=== PATIENT | female | born 1955 | race Caucasian/White ===

== ENCOUNTER 2017-03-01 08:15 | Inpatient (IN) | payer BC, OTHER ==
[2017-02-27 15:48] VITALS: BMI 34.5
--- NOTE | 2017-03-01 07:46 | HP ---
History & Physical Update - History History: No Change - Physical Physical: No Change - Assessment Assessment: No Change - Plan Plan: No Change
[~2017-03-01 08:15] MED LIST: GABAPENTIN 300 MG CAPSULE (FP) PO ONE
[2017-03-01] MEDS ORDERED: oxyCODONE HCL 10 MG SUSTAINED ACTING TABLET PO STA (10:02)
[2017-03-01] MEDS ORDERED: CEFAZOLIN 2 GM/D5W 50 ML IVPB ONE (10:02)
[2017-03-01] MEDS ORDERED: THROMBIN (BOVINE) 5,000 UNIT VIAL TP ONE (11:30)
[2017-03-01] MEDS ORDERED: BUPIVACAINE HCL/PF 2.5 MG/ML - 30 ML VIAL IJ ONE ×2 (11:30→11:36)
[2017-03-01] MEDS ORDERED: LIDOCAINE 1%/EPI 1:100000 (20 ML MULTI DOSE VIAL) ONE (11:30)
[2017-03-01] MEDS ORDERED: MIDAZOLAM HCL 2 MG/2 ML SINGLE DOSE VIAL ONE ×2 (11:41→13:43)
[2017-03-01] MEDS ORDERED: BUPIVACAINE HCL/PF 0.5% (5MG/ML) 10 ML VIAL ONE (11:59)
[2017-03-01] MEDS ORDERED: BUPIVACAINE HCL 0.25% 125 MG/50 ML VIAL ONE (12:10)
[2017-03-01] MEDS ORDERED: LIDOCAINE 1%/EPI 1:100000 (20 ML MULTI DOSE VIAL) IJ ONE (12:30)
[2017-03-01] MEDS ORDERED: ceFAZolin SODIUM 1 GM VIAL ONE (12:48)
[2017-03-01] MEDS ORDERED: ONDANSETRON 4 MG/2 ML VIAL ONE (12:57)
[2017-03-01] MEDS ORDERED: DEXAMETHASONE SOD PHOSPHATE 4 MG/1 ML VIAL ONE (12:57)
[2017-03-01] MEDS ORDERED: BUPIVACAINE HCL 0.25% 125 MG/50 ML VIAL INF ONE ×2 (13:05)
[2017-03-01] MEDS ORDERED: hydrALAZINE HCL 20 MG/ML VIAL ONE (13:45)
[2017-03-01] MEDS ORDERED: PROMETHAZINE HCL 25 MG/1 ML VIAL IVPUSH PRN (14:43)
[2017-03-01] MEDS ORDERED: ONDANSETRON 4 MG/2 ML VIAL IVPUSH PRN (14:43)
[2017-03-01] MEDS ORDERED: LACTATED RINGERS SOLUTION 1,000 ML IV SCH ×2 (14:45→15:30)
[2017-03-01] MEDS ORDERED: KETOROLAC TROMETHAMINE 30 MG/1 ML VIAL IVPUSH PRN (15:27)
[2017-03-01] MEDS ORDERED: CYCLOBENZAPRINE HCL 10 MG TABLET (FP) PO PRN (15:27)
[2017-03-01] MEDS ORDERED: ACETAMINOPHEN 1000 MG/100 ML VIAL (NON FORMULARY) IVPB PRN (15:27)
[2017-03-01] MEDS ORDERED: ONDANSETRON 4 MG/2 ML VIAL IVPB PRN (15:27)
[2017-03-01] MEDS ORDERED: oxyCODONE HCL 5 MG TABLET PO PRN (15:27)
[2017-03-01] MEDS ORDERED: ACETAMINOPHEN INJECTION 100 ML IVPB ONE (15:28)
[2017-03-01] MEDS ORDERED: diazePAM CARPU-JECT 10 MG/2 ML DISP.SYRIN ONE (15:29)
[2017-03-01] MEDS ORDERED: traMADol HCL 50 MG TABLET ONE (15:29)
[2017-03-01] MEDS: traMADol HCL 50 MG TABLET PO SCH ×3 (15:50→21:34)
--- NOTE | 2017-03-01 15:57 | OP ---
Operative Note - Note: Operative Date: 03/01/17 Pre-Operative Diagnosis: L4/5 spondylolithesis Operation: L4/5 TLIF Post-Operative Diagnosis: Same as Pre-op Surgeon: Kannan Soliman [employer] Operator: Ovidio Ward (Lex[employer] 2nd) Anesthesiologist/SOCIAL WORK INSTRUCTOR: Spencer Goodson Anesthesia: Spinal Estimated Blood Loss (mls): 30 Fluid Volume Replaced (mls): 1,200 Operative Report Dictated: Yes
--- NOTE | 2017-03-01 15:59 | SURG ---
Surgery Analysis Consultant Note Analysis Consultant: Ovidio Ward PA-C Date of Service: 03/01/17 Diagnosis: L4/5 spondylolithesis, radiculopathy Procedure: L4/5 transforaminal lumbar interbody fusion/instrumentation/decompression; allograft implant, neuromonitoring I was present for the entirety of the operative procedure. For further detail, please refer to operative report. Visit type - Case Type Case Type: Scheduled Admission - New patient This patient is new to me today: Yes Date on this admission: 03/01/17
[2017-03-01] MEDS ORDERED: diazePAM CARPU-JECT 10 MG/2 ML DISP.SYRIN IVPUSH ONE (16:30)
--- NOTE | 2017-03-01 16:44 | OP ---
DATE OF OPERATION: 03/01/2017 PREOPERATIVE DIAGNOSES: 1. Spinal stenosis, L4-5. 2. Spondylolisthesis, L4-5. POSTOPERATIVE DIAGNOSES: 1. Spinal stenosis, L4-5. 2. Spondylolisthesis, L4-5. PROCEDURE PERFORMED: 1. Transforaminal lumbar interbody fusion, L4-5. 2. Placement of instrumentation, L4-5. 3. Hemilaminectomy. SURGEON: Kannan Soliman MD GIANT TIRE REPAIRER: KATHRYN Chirinos ESTIMATED BLOOD LOSS: 50 mL. IV FLUIDS: Per Anesthesia. COMPLICATIONS: There were none. ANESTHESIA: Spinal. DISPOSITION: Patient brought to the PACU in stable condition. INDICATIONS FOR SURGERY: The patient is a 61-year-old female who has been suffering from pain from significant from her back down her legs. X-rays and MRI were completed, which noted that she had spinal stenosis at L4-5 secondary to spondylolisthesis. She had gone through an exhaustive course of treatment for this, which included medications, physical therapy as well as injections. Unfortunately, her pain continued to persist despite all this. At this point, risks, benefits , and alternatives were discussed and the patient consented to surgery. OPERATIVE NOTE: The patient was brought to the operating room by anesthesia staff. After appropriate patient identification was performed, spinal anesthesia was given. The patient was able to position herself prone onto the OR table, with all areas of bony prominences well padded at this time. The C-arm was brought in. The L4 and L5 levels were marked off. Then 10 mL of lidocaine with epinephrine was injected into her back at this time. Her back was prepped and draped in a sterile manner. At this point timeout was completed. Incisions were made bilaterally over the L4 and L5 pedicles. Dissection was carried down to the fascia. The fascia was then split open at this time. The C-arm was brought in. Under C-arm guidance, trocars were advanced into both the L4 and L5 pedicles. Through the trocars, wires inserted. Over the wires, tap was performed and screws inserted. On the right-hand side, retractor blades were set up to expose the L4-5 facet joint. This was confirmed with x-ray. The facet joint was removed with a bur. The disk was entered using a series of pituitaries, Kerrisons, and curettes. A diskectomy was completed. The endplates were decorticated at this time. Bone graft was laid down. A cage filled with bone graft was placed in. Tulip heads were placed over the screws. A ramírez was measured and placed in. Compression and final tightening was performed. On the left-hand side, a ramírez was measured and placed in, caps were placed on. Compression and final tightening was performed. All extra instrumentation was removed at this time. AP and lateral x-rays confirmed instrumentation to be in good position. The fascia was closed with number 1 Vicryl suture. Exparel was injected. Subcutaneous tissue was closed with 2-0 Vicryl suture. Skin was closed with 3-0 Monocryl suture. Dermabond was applied, Steri-Strips were applied, a sterile dressing applied. Patient was placed supine on the OR bed and brought to the PACU in stable condition. Vince [id number] MTDD
[2017-03-01] MEDS: INSULIN SLIDING SCALE (NOVOLOG) 1 VIAL SQ SCH ×2 (17:37→22:07)
[2017-03-01] MEDS: ACETAMINOPHEN 325 MG TABLET (FP) PO SCH (21:34)
[2017-03-01] MEDS: diazePAM 2 MG TABLET PO SCH (21:35)
[2017-03-01] MEDS: oxyCODONE HCL 5 MG TABLET PO PRN (21:35)
[2017-03-01] MEDS: CEFAZOLIN 2 GM/D5W 50 ML IVPB SCH (21:59)
[2017-03-01] MEDS ORDERED: GABAPENTIN 300 MG CAPSULE (FP) PO SCH (22:00)
[2017-03-01] MEDS ORDERED: INSULIN (NOVOLOG) ASPART 100 UNITS/ML 10ML VIAL ONE (22:08)
[2017-03-02] MEDS: oxyCODONE HCL 5 MG TABLET PO PRN ×2 (02:37→06:28)
[2017-03-02] MEDS: traMADol HCL 50 MG TABLET PO SCH ×2 (03:17→09:33)
[2017-03-02] MEDS: ACETAMINOPHEN 325 MG TABLET (FP) PO SCH ×2 (03:18→09:32)
[2017-03-02] MEDS: CEFAZOLIN 2 GM/D5W 50 ML IVPB SCH (06:19)
[2017-03-02] MEDS: INSULIN SLIDING SCALE (NOVOLOG) 1 VIAL SQ SCH (06:33)
[2017-03-02] MEDS ORDERED: LEVOTHYROXINE NA 25 MCG TABLET (FP) PO SCH (07:00)
--- NOTE | 2017-03-02 07:15 | DS ---
Physical Exam: SUBJECTIVE: Patient seen and examined. No acute events per RN notes. She has ambulated a little bit with RN assist. Voiding spontaneously. Tolerating PO diet. Denies n/v/f/c, CP, SOB, numbness/tingling to her lower extremities. OBJECTIVE: Last Vital Signs Temp Pulse Resp BP Pulse Ox 98.4 F 89 19 127/66 94 L 03/02/17 06:17 03/02/17 06:17 03/02/17 06:17 03/02/17 06:17 03/02/17 06:17 PHYSICAL EXAM GENERAL: awake, alert, and fully oriented, in no acute distress. HEAD: Normal with no signs of trauma. EYES: PERRL, extraocular movements intact, sclera anicteric, conjunctiva clear. NECK: Trachea midline, full range of motion, supple. LUNGS: CTA b/l anteriorly HEART: RRR ABDOMEN: Obese. Soft, nontender, nondistended, normoactive bowel sounds. EXTREMITIES: 2+ pulses, warm, well-perfused, no edema. NEUROLOGICAL: CN II through XII grossly intact. Normal speech. Strength 5/5 bilat LE. Gait not observed. PSYCH: Normal mood, normal affect. SKIN: Lumbar dressing c/d/i. Dressing taken down on rounds --> no hematoma or seroma. LABS POC Glucometer 106 UNITS (()) 03/02/17 06:32 HOSPITAL COURSE: Date of Admission:03/01/17 Date of Discharge: 03/02/17 The patient was admitted to the Med-Surg Unit after an elective repair of their L4/5 spondylolithesis. Now, s/p L4/5 transforaminal lumbar interbody fusion/ instrumentation/decompression; allograft implant, neuromonitoring. The day of surgery, the patient ambulated the hallways with assistance. Narcotic and non-narcotic pain management control was achieved with an oral and IV approach. POD#1 An xray was obtained and confirmed hardware placement at L4/5 , no fractures or dislocations. Katerina-operative IV ABX were administered. DVT prophylaxis was achieved with SCDs and early ambulation. The patient ambulated with Physical Therapy and no services were recommended upon discharge. Narcotic scripts and or muscle relaxants were checked with [facility] MANAGER prior to escribe. The discharge instructions and an oral pain management plan were reviewed with the patient. All questions answered. Above plan discussed with Dr. Soliman and agreed. Minutes to complete discharge: 15 <Ovidio Ward P - Last Filed: 03/02/17 07:17> Physical Exam: SUBJECTIVE: Patient seen and examined OBJECTIVE: Vital Signs Temperature 98 F 03/02/17 09:38 Pulse Rate 86 03/02/17 09:38 Respiratory Rate 19 03/02/17 09:38 Blood Pressure 110/68 03/02/17 09:38 O2 Sat by Pulse Oximetry (%) 94 L 03/02/17 09:39 PHYSICAL EXAM GENERAL: The patient is awake, alert, and fully oriented, in no acute distress. HEAD: Normal with no signs of trauma. EYES: PERRL, extraocular movements intact, sclera anicteric, conjunctiva clear. ENT: Ears normal, nares patent, oropharynx clear without exudates, moist mucous membranes. NECK: Trachea midline, full range of motion, supple. LUNGS: Breath sounds equal, clear to auscultation bilaterally, no wheezes, no crackles, no accessory muscle use. HEART: Regular rate and rhythm, S1, S2 without murmur, rub or gallop. ABDOMEN: Soft, nontender, nondistended, normoactive bowel sounds, no guarding, no rebound, no hepatosplenomegaly, no masses. EXTREMITIES: 2+ pulses, warm, well-perfused, no edema. NEUROLOGICAL: Cranial nerves II through XII grossly intact. Normal speech, gait not observed. PSYCH: Normal mood, normal affect. SKIN: Warm, dry, normal turgor, no rashes or lesions noted. LABS CBC,CMP WBC 12.3 K/mm3 (4.0-10.8) H 03/02/17 07:00 RBC 3.91 M/mm3 (3.60-5.2) 03/02/17 07:00 Hgb 9.5 GM/dl (10.7-15.3) L 03/02/17 07:00 Hct 30.6 % (32.4-45.2) L 03/02/17 07:00 MCV 78.2 fl (80-96) L 03/02/17 07:00 MCH 24.4 pg (25.7-33.7) L 03/02/17 07:00 MCHC 31.1 g/dl (32.0-36.0) L 03/02/17 07:00 RDW 17.1 % (11.6-15.6) H 03/02/17 07:00 Plt Count 358 K/MM3 (134-434) 03/02/17 07:00 MPV 7.9 fl (7.5-11.1) 03/02/17 07:00 Hypochromia 1+ 03/02/17 07:00 Platelet Estimate Adequate (NORMAL) 03/02/17 07:00 Anisocytosis 1+ 03/02/17 07:00 Sodium 136 mmol/L (136-145) 03/02/17 07:00 Potassium 4.1 mmol/L (3.5-5.1) 03/02/17 07:00 Chloride 101 mmol/L (98-107) 03/02/17 07:00 Carbon Dioxide 29 mmol/L (22-28) H 03/02/17 07:00 Anion Gap 6 (8-16) L 03/02/17 07:00 BUN 14 mg/dl (7-18) 03/02/17 07:00 Creatinine 0.8 mg/dl (0.6-1.3) 03/02/17 07:00 POC Glucometer 106 UNITS (()) 03/02/17 06:32 Random Glucose 127 mg/dl (74-106) H 03/02/17 07:00 Calcium 8.7 mg/dl (8.4-10.2) 03/02/17 07:00 HOSPITAL COURSE: Date of Admission:03/01/17 Date of Discharge: 03/05/17 The patient was admitted to the Med-Surg Unit after an elective repair of their L4-5 spondylolisthesis. The day of surgery, the patient ambulated the hallways with assistance. Narcotic and non-narcotic pain management control was achieved with an oral and IV approach. POD #1, the surgical drain was removed fully intact and without incident. An xray was obtained and confirmed hardware placement at L4-5, no fractures or dislocations. Katerina-operative IV ABX were administered. DVT prophylaxis was achieved with SCDs and early ambulation. The patient ambulated with Physical Therapy and no services were recommended upon discharge. Narcotic scripts and or muscle relaxants were checked with [facility] MANAGER prior to escibe. The discharge instructions and an oral pain management plan were reviewed with the patient. All questions answered. Above plan discussed with Dr. Soliman and agreed. <Kannan Soliman - Last Filed: 03/05/17 12:52> Visit type - Case Type Case Type: Scheduled Admission <Ovidio Ward - Last Filed: 03/02/17 07:17>
[2017-03-02 08:14] LABS: MCH 24.4 pg (25.7-33.7); MCHC 31.1 g/dl (32.0-36.0); MEAN CELL VOLUME 78.2 fl (80-96); MEAN PLT VOLUME 7.9 fl (7.5-11.1); PLATELET COUNT 358 K/MM3 (134-434); RDW 17.1 % (11.6-15.6); WHITE BLOOD COUNT 12.3 K/mm3 (4.0-10.8)
[2017-03-02 08:31] LABS: ANION GAP 6 (8-16); CALCIUM 8.7 mg/dl (8.4-10.2); CO2 29 mmol/L (22-28); CREATININE 0.8 mg/dl (0.6-1.3); GLUCOSE,RANDOM 127 mg/dl (74-106)
[2017-03-02 09:03] LABS: PLATELET ESTIMATE ADEQUATE (NORMAL)
[2017-03-02 09:04] LABS: ANISOCYTOSIS 1+; HYPOCHROMIA 1+
[2017-03-02] MEDS: diazePAM 2 MG TABLET PO SCH (09:33)
[2017-03-02 09:39] VITALS: BP 110/68; PULSE 86; TEMP 98
[2017-03-02] MEDS ORDERED: DULoxetine HCL 30 MG CAPSULE.DR (FP) PO SCH (10:00)
[2017-03-02] MEDS ORDERED: LIOTHYRONINE SODIUM 5 MCG TABLET PO SCH (10:00)
[2017-03-02] MEDS ORDERED: LOSARTAN POTASSIUM 50 MG TABLET (FP) PO SCH (10:00)
[2017-03-02] MEDS ORDERED: BUDESONIDE/FORMETEROL FUMARATE 160/4.5 mcg INHALER IH SCH (10:00)
[2017-03-02] MEDS ORDERED: PANTOPRAZOLE 40 MG TABLET (FP) PO SCH (10:00)
--- NOTE | 2017-03-02 10:06 | PN ---
Progress Note (short form) - Note Progress Note: S: Pt. doing well. ambulating and dressing without assistance O: VAS 7/10 (was 10/10 pre-op) A/P: POD#1 s/p L4-5 Lumbar Fusion 1. continue pain meds as ordered 2. no apparent anesthetic complications
== END 2017-03-02 10:43 | disposition home or self-care (01) | DRG 460 ==
LOC: FM/S 09:34
PROVIDERS: ADMIT Orthopaedic Surgery Orthopaedic Surgery of the Spine; ATTEND Orthopaedic Surgery Orthopaedic Surgery of the Spine
PROC: 0SB20ZZ Excision of Lumbar Vertebral Disc, Open Approach (ICD-10-PCS; 2017-03-01)
PROC: 0SG00AJ Fusion of Lumbar Vertebral Joint with Interbody Fusion Device, Posterior Approach, Anterior Column, Open Approach (ICD-10-PCS; principal; 2017-03-01 12:18)
DX: M43.16 Spondylolisthesis, lumbar region (principal); M48.06 Spinal stenosis, lumbar region; J44.9 Chronic obstructive pulmonary disease, unspecified; E11.9 Type 2 diabetes mellitus without complications; E66.9 Obesity, unspecified; I10 Essential (primary) hypertension
CPT/HCPCS: 36415; 72100-TC; 76001-TC; 80048; 85027; 94760; 97116-GP; 97161-GP

== ENCOUNTER 2017-11-26 08:13 | Inpatient (IN) | payer BC ==
[2017-11-15 09:13] VITALS: BMI 33.6
--- NOTE | 2017-11-26 07:32 | HP ---
Admitting History and Physical - Admission Chief Complaint: Right hip osteoarthritis x years History of Present Illness: 62 year old female presents in regard to his right hip. Longstanding history of right hip osteoarthritis. Patient complains of pain, limited ROM, difficulty ambulating and difficulty with ADLs. Patient has failed conservative treatment measures including PO medication, activity modification, exercise program and injections. At this point, patient would like to proceed with surgical intervention, Right total hip arthroplasty - MAKOplasty. History Source: Patient - Past Medical History Cardiovascular: Yes: HTN Pulmonary: Yes: Asthma Gastrointestinal: Yes: GERD Endocrine: Yes: Hypothyroidism - Past Surgical History Additional Past Surgical History: See written history & physical. - Smoking History Smoking history: Former smoker Have you smoked in the past 12 months: No If you are a former smoker, when did you quit?: 2009 - Alcohol/Substance Use Hx Alcohol Use: No Home Medications - Allergies Allergies/Adverse Reactions: Allergies Allergy/AdvReac Type Severity Reaction Status Date / Time No Known Allergies Allergy Verified 11/15/17 09:03 - Home Medications Home Medications: Ambulatory Orders Duloxetine HCl [Cymbalta] 60 mg PO DAILY 02/27/17 Gabapentin 300 mg PO HS 02/27/17 Irbesartan [Avapro] 300 mg PO DAILY 02/27/17 Lansoprazole [Prevacid] 30 mg PO DAILY 02/27/17 Levothyroxine [Synthroid -] 25 mcg PO DAILY 02/27/17 Liothyronine Sodium [Cytomel] 2 tab PO DAILY 02/27/17 Salmeterol/Fluticasone [Advair 500Mcg/50Mcg -] 2 inh IH DAILY 02/27/17 Orphenadrine Citrate 100 mg PO BID PRN #30 tablet.er MDD 2 03/02/17 Aspirin [ASA -] 81 mg PO DAILY 11/15/17 Review of Systems - Review of Systems Musculoskeletal: reports: Decreased ROM (right hip), Joint Pain (right hip) Physical Examination Constitutional: Yes: Well Nourished, No Distress Eyes: Yes: Conjunctiva Clear HENT: Yes: Atraumatic, Normocephalic Neck: Yes: Supple Cardiovascular: Yes: Regular Rate and Rhythm Respiratory: Yes: Regular Gastrointestinal: Yes: Soft Musculoskeletal: Yes: Joint Stiffness (right hip) Assessment/Plan 62 year old female presents in regard to his right hip. Longstanding history of right hip osteoarthritis. Patient complains of pain, limited ROM, difficulty ambulating and difficulty with ADLs. Patient has failed conservative treatment measures including PO medication, activity modification, exercise program and injections. At this point, patient would like to proceed with surgical intervention. Pros, cons, risks, benefits & alternatives of a right total hip arthroplasty - MAKOplasty were discussed with the patient at length. Patient confirms her understanding and consents to proceed with a right total hip arthroplasty - MAKOplasty.
[~2017-11-26 08:13] MED LIST changes: +CEFAZOLIN 2 GM/D5W 2 GM/50 ML ML IVPB ONE; -GABAPENTIN 300 MG CAPSULE (FP) PO ONE; +PANTOPRAZOLE 40 MG TABLET (FP) PO ONE; +ROPIVICAINE 0.2%/MORPH PF/KETOROLAC - 51ML DISP.SYRINGE IA ONE; +TRANEXAMIC ACID 1000 MG/10 ML VIAL IVPUSH ONE
[2017-11-26] MEDS ORDERED: oxyCODONE HCL 10 MG SUSTAINED ACTING TABLET ONE (08:44)
[2017-11-26] MEDS ORDERED: CELECOXIB 200 MG CAPSULE ONE (08:45)
[2017-11-26] MEDS: oxyCODONE HCL 10 MG SUSTAINED ACTING TABLET PO ONE (08:45)
[2017-11-26] MEDS: GABAPENTIN 300 MG CAPSULE (FP) PO ONE (08:45)
[2017-11-26] MEDS: CELECOXIB 200 MG CAPSULE PO ONE (08:45)
[2017-11-26] MEDS ORDERED: GABAPENTIN 300 MG CAPSULE (FP) ONE (08:45)
[2017-11-26] MEDS ORDERED: MIDAZOLAM HCL 2 MG/2 ML SINGLE DOSE VIAL ONE (09:26)
[2017-11-26] MEDS ORDERED: EPINEPHrine/PF 1 MG/1 ML (1:1,000) AMPULE ONE (09:26)
[2017-11-26] MEDS ORDERED: DEXAMETHASONE SOD PHOSPHATE/PF 10 MG/ML SDV ONE (09:26)
[2017-11-26] MEDS ORDERED: BUPIVACAINE HCL/PF (5 MG/ML) 30 ML VIAL IJ ONE (09:26)
[2017-11-26] MEDS ORDERED: VANCOMYCIN 1,000 MG VIAL (RESTRICTED TO ID ONLY) IVPB ONE ×2 (12:27→13:13)
[2017-11-26] MEDS ORDERED: TRANEXAMIC ACID 1000 MG/10 ML VIAL IVPB ONE ×2 (12:33→13:13)
[2017-11-26] MEDS ORDERED: ROPIVICAINE 0.2%/MORPH PF/KETOROLAC - 51ML DISP.SYRINGE IA ONE ×2 (12:34→13:13)
[2017-11-26] MEDS ORDERED: oxyCODONE HCL 5 MG TABLET PO PRN (14:32)
--- NOTE | 2017-11-26 14:48 | OP ---
Operative Note - Note: Operative Date: 11/26/17 Pre-Operative Diagnosis: right hip OA Operation: Right VERONICA APRIL Post-Operative Diagnosis: Same as Pre-op Surgeon: Kishan Salazar Lion Trainer: Jeni Shipley Anesthesia: Spinal Estimated Blood Loss (mls): 250 Operative Report Dictated: Yes
[2017-11-26] MEDS ORDERED: MAG HYDROX/AL HYDROX/SIMETH 30 ML UNIT-DOSE CUP PO PRN (14:53)
[2017-11-26] MEDS ORDERED: ONDANSETRON 4 MG/2 ML VIAL IVPUSH PRN (14:53)
[2017-11-26] MEDS ORDERED: MAGNESIUM HYDROX 2400MG/30ML ORAL SUSPENSION 30 ML CUP PO PRN (14:53)
[2017-11-26] MEDS ORDERED: ACETAMINOPHEN 1000 MG/100 ML VIAL (NON FORMULARY) IVPB ONE ×2 (14:56→15:07)
[2017-11-26] MEDS ORDERED: LACTATED RINGERS SOLUTION 1,000 ML IV SCH (15:00)
[2017-11-26] MEDS: traMADol HCL 50 MG TABLET PO SCH ×2 (15:00→20:18)
[2017-11-26] MEDS ORDERED: KETOROLAC TROMETHAMINE 30 MG/1 ML VIAL IVPUSH ONE (15:00)
[2017-11-26] MEDS ORDERED: traMADol HCL 50 MG TABLET PO ONE (15:05)
[2017-11-26] MEDS: CEFAZOLIN 2 GM/D5W 2 GM/50 ML ML IVPB SCH (17:42)
--- NOTE | 2017-11-26 19:51 | SPEC ---
DATE OF OPERATION: 11/26/2017 PREOPERATIVE DIAGNOSIS: Right hip osteoarthritis. POSTOPERATIVE DIAGNOSIS: Right hip osteoarthritis. PROCEDURE: Right total hip replacement with MAKOplasty robotic navigation. ATTENDING: Darleen Grant MD MAINTENANCE SUPERVISOR: KATHRYN Singh ANESTHESIA: Spinal plus sedation. ESTIMATED BLOOD LOSS: 250 mL COMPLICATIONS: None. DISPOSITION: The patient was transferred to the PACU in stable condition. IMPLANTS USED: [place] Accolade II size 7 femoral component, Leo Tritanium 52-mm acetabular component with 25-mm and 15-mm acetabular screws, MDM bipolar head ball with 28 plus 4 mm ceramic inner ball and MDM liner. INDICATIONS: This is a 62-year-old female who presented to the office complaining of severe right hip pain. She was seen and examined by Dr. Grant and diagnosed with severe right hip osteoarthritis. The patient was initially treated nonoperatively with injections, medications, and physical therapy but failed conservative management. She continued to have severe pain and ambulatory dysfunction. She was, therefore, indicated for a right total hip replacement with MAKOplasty robotic navigation. The risks, benefits, and alternatives to the procedure were explained to the patient in great detail, and she elected to proceed with surgery. On the day of surgery, the patient was taken to the operating room and placed on the OR table. Spinal anesthesia was administered by the anesthesiologist. The patient was then positioned in the lateral decubitus position on the table and all bony prominences were padded. An axillary roll was placed. The operative hip was then prepped and draped in the usual sterile fashion and intravenous antibiotics were given for infection prophylaxis. A surgical time-out was then performed with the team, and the patients identity, procedure, side, availability of implants, and the administration of antibiotics were confirmed. An approximately 15-cm longitudinal incision was made through the skin centered on the greater trochanter of the hip. This dissection was carried down through the subcutaneous tissues to the deep fascia. This fascia was then incised and a Cobra was placed around the inferior femoral neck. Electrocautery was used to reflect the anterior 40% of the gluteus medius and minimus starting at the musculotendinous junction and leaving a cuff for closure. This was reflected to reveal the capsule of the hip joint. An anterior capsulectomy was performed and the femoral head and neck were visualized. Grade 4 changes were noted diffusely throughout the joint. At this point, three small stab incisions were made superior to the main incision along the iliac crest. Three self-drilling Steinmann pins were then placed and the [employer] pelvic array was attached. Reference points on the limb were then entered into the robotic device and the limb length deficiency, offset, and femoral neck resection level were then calculated by the software. The hip was then dislocated with traction and external rotation. An oscillating saw was used to make the femoral neck cut at the level previously templated, and the femoral head was removed. Attention was then turned to the acetabulum. Retractors were then placed around the acetabulum and the labrum was removed. An acetabular checkpoint pin and the [employer] software were used to register the contours of the acetabulum. The acetabulum was then reamed in a single stage to the preoperatively templated size using the [employer] robotic arm. The appropriately sized cup was then impacted and had solid fixation as well as the preset inclination and version of 40 and 20 degrees, respectively. A polyethylene liner was then placed in the cup. Attention was then turned back to the femur, which was externally rotated for improved visualization. A femoral neck elevator was used to present the femoral neck cut, a box osteotome was used to enter the femoral canal, and a canal finder was used to go down the femoral shaft. The Waldemar broaches were used sequentially until the optimal scratch fit was achieved. This correlated with the preoperatively templated size. From here, several different offset head and neck configurations were tested until excellent stability and length were obtained. These measurements were quantified using the [employer] software. All trial components were then removed, the femur was copiously irrigated, and the final components were placed. Leg length and stability were checked again and found to be excellent. Irrigation was performed again. Wound closure was started by repairing the abductor muscles with a no. 2 FiberWire stitch in a Krackow configuration passed through bone tunnels in the greater trochanter and tied over a bony bridge. This repair was then reinforced with a 0 V-Loc 180 barbed suture. Next, no. 1 Polysorb and 0 V-Loc 180 were used to close the fascia. The deep subcutaneous tissue was closed with no. 1 Polysorb sutures, and 2-0 Polysorb was used for the superficial subcutaneous tissue. The skin was closed using both 3-0 V-Loc 90 suture in a running subcuticular fashion and SwiftSet skin adhesive. The [employer] array and pins were removed from the iliac crest and the stab incision sites were irrigated and closed with 4-0 Polysorb sutures and SwiftSet skin adhesive. Once this was completed, a sterile dressing was applied. The patient was then awakened and taken to the PACU in stable condition. ADDENDUM: After final implants were placed, a 3-minute dilute Betadine lavage was performed. Following this, the wound was thoroughly irrigated with normal saline, and wound closure was begun. DARLEEN GRNAT M.D. [id number]
[2017-11-26] MEDS: oxyCODONE HCL 5 MG TABLET PO PRN (20:18)
[2017-11-26] MEDS: KETOROLAC TROMETHAMINE 30 MG/1 ML VIAL IVPUSH SCH (20:18)
[2017-11-26] MEDS: ASCORBIC ACID 500 MG TABLET (FP) PO SCH (21:37)
[2017-11-26] MEDS: FERROUS SO4 325 MG TABLET (FP) PO SCH (21:37)
[2017-11-26] MEDS: oxyCODONE HCL 10 MG SUSTAINED ACTING TABLET PO SCH (21:37)
[2017-11-26] MEDS: GABAPENTIN 300 MG CAPSULE (FP) PO SCH (21:37)
[2017-11-26] MEDS: SENNOSIDES/DOCUSATE COMBO (SENNA PLUS) TABLET (UD) PO SCH (21:37)
[2017-11-26] MEDS: CELECOXIB 200 MG CAPSULE PO SCH (21:39)
[2017-11-26] MEDS ORDERED: DEXAMETHASONE SOD PHOSPHATE 10 MG/1 ML VIAL IVPB ONE (23:00)
[2017-11-27] MEDS: CEFAZOLIN 2 GM/D5W 2 GM/50 ML ML IVPB SCH (02:00)
[2017-11-27] MEDS: KETOROLAC TROMETHAMINE 30 MG/1 ML VIAL IVPUSH SCH ×3 (03:13→20:31)
[2017-11-27] MEDS: traMADol HCL 50 MG TABLET PO SCH ×4 (03:13→21:00)
[2017-11-27] MEDS: oxyCODONE HCL 5 MG TABLET PO PRN ×4 (05:30→21:00)
[2017-11-27] MEDS: LEVOTHYROXINE NA 25 MCG TABLET (FP) PO SCH (06:25)
[2017-11-27] MEDS: ASPIRIN 325 MG TABLET PO SCH (08:05)
[2017-11-27 09:09] LABS: HEMATOCRIT 28.2 % (32.4-45.2); HEMOGLOBIN 8.9 GM/dl (10.7-15.3); MCH 23.4 pg (25.7-33.7); MCHC 31.6 g/dl (32.0-36.0); MEAN CELL VOLUME 74.1 fl (80-96); MEAN PLT VOLUME 7.9 fl (7.5-11.1); PLATELET COUNT 404 K/MM3 (134-434); RBC 3.81 M/mm3 (3.60-5.2); RDW 16.5 % (11.6-15.6); WHITE BLOOD COUNT 11.6 K/mm3 (4.0-10.8)
[2017-11-27] MEDS: oxyCODONE HCL 10 MG SUSTAINED ACTING TABLET PO SCH ×2 (09:25→21:20)
[2017-11-27] MEDS ORDERED: PT OWN MED DRAWER 7, Y5N ONE (09:26)
[2017-11-27 09:30] LABS: ANION GAP 4 (8-16); BLOOD UREA NITROGEN 18 mg/dl (7-18); CALCIUM 8.5 mg/dl (8.4-10.2); CHLORIDE 105 mmol/L (98-107); CO2 26 mmol/L (22-28); CREATININE 0.8 mg/dl (0.6-1.3); GLUCOSE,RANDOM 142 mg/dl (74-106); POTASSIUM 4.4 mmol/L (3.5-5.1); SODIUM 135 mmol/L (136-145)
--- NOTE | 2017-11-27 09:45 | PN ---
Progress Note (short form) - Note Progress Note: 62F POD1 s/p R THR under spinal anesthetic with peripheral nerve block for post operative pain relief. Pt states that pain is well controlled and reports no anesthetic complications. AVSS. Motor and sensory function intact in bilateral lower extremities. Continue current regimen.
[2017-11-27] MEDS: BUDESONIDE/FORMETEROL FUMARATE 160/4.5 mcg INHALER IH SCH ×2 (10:00→21:21)
[2017-11-27] MEDS: SENNOSIDES/DOCUSATE COMBO (SENNA PLUS) TABLET (UD) PO SCH ×2 (10:00→21:20)
[2017-11-27] MEDS: LIOTHYRONINE SODIUM 5 MCG TABLET PO SCH (10:05)
[2017-11-27] MEDS: DULoxetine HCL 30 MG CAPSULE.DR (FP) PO SCH (10:07)
[2017-11-27] MEDS: MULTIVITAMINS (DAILY MVI) TABLET (FP) PO SCH (10:10)
[2017-11-27] MEDS: CELECOXIB 200 MG CAPSULE PO SCH ×2 (10:33→21:20)
[2017-11-27] MEDS: FERROUS SO4 325 MG TABLET (FP) PO SCH ×2 (10:34→21:20)
[2017-11-27] MEDS: LOSARTAN POTASSIUM 50 MG TABLET (FP) PO SCH (10:34)
[2017-11-27] MEDS: GABAPENTIN 300 MG CAPSULE (FP) PO SCH ×2 (10:36→21:20)
[2017-11-27] MEDS: PANTOPRAZOLE 40 MG TABLET (FP) PO SCH (10:37)
[2017-11-27] MEDS: ASCORBIC ACID 500 MG TABLET (FP) PO SCH ×2 (10:38→21:20)
[2017-11-27] MEDS: CELECOXIB 200 MG CAPSULE PO ONE (20:29)
[2017-11-27] MEDS: oxyCODONE HCL 10 MG SUSTAINED ACTING TABLET PO ONE (20:30)
[2017-11-27] MEDS: GABAPENTIN 300 MG CAPSULE (FP) PO ONE (20:30)
--- NOTE | 2017-11-27 22:14 | PN ---
Progress Note (short form) - Note Progress Note: Pt seen and examined. Comfortable. Doing well. AVSS Selected Entries 11/27/17 11/27/17 14:06 20:54 Temperature 97.6 F Respiratory 16 16 Rate Blood Pressure 117/55 O2 Sat by Pulse 92 L Oximetry (%) Laboratory Tests 11/27/17 11/27/17 07:35 07:35 WBC 11.6 H Hgb 8.9 L Hct 28.2 L Plt Count 404 Sodium 135 L Potassium 4.4 Chloride 105 Carbon Dioxide 26 Anion Gap 4 L BUN 18 D Creatinine 0.8 Creat Clearance w eGFR > 60 Random Glucose 142 H Calcium 8.5 Gen: NAD RLE: c/d/i, NVID A/P POD#1 s/p R APRIL 1. PT/OOB 2. D/C in AM after PT
--- NOTE | 2017-11-27 22:42 | DS ---
Physical Examination Vital Signs: Vital Signs Temperature 98.6 F 11/27/17 22:00 Pulse Rate 66 11/27/17 22:00 Respiratory Rate 17 11/27/17 22:00 Blood Pressure 123/54 11/27/17 22:00 O2 Sat by Pulse Oximetry (%) 92 L 11/27/17 22:00 Labs: CBC, BMP 11/27/17 07:35 11/27/17 07:35 Discharge Summary Reason For Visit: RIGHT HIP OSTEOARTHRITIS Current Active Problems Localized osteoarthrosis of right hip (Acute) Procedures: Principal: right VERONICA APRIL Hospital Course: Admitted for elective surgery. Procedure performed without complications. Pt received postoperative antibiotic prophylaxis and DVT ppx. Ambulated with physical therapy. Stable for discharge home with outpatient followup. Condition: Stable - Instructions Diet, Activity, Other Instructions: Dr Grant - Hip Replacement Instructions Keep the Aquacel dressing on until removed by Dr. Grant in 10-14 days - it is antibacterial and waterproof and you can shower with it on. Call the office for a follow-up appointment with Dr. Grant ON SundayDecember [phone] DR GRANT WILL BE OUT OF TOWN NEXT WEEK; DRS. FINK AND SAE WILL BE IN THE OFFICE IF THERE ARE ANY ISSUES. Take one Aspirin 325mg daily for 6 weeks to prevent blood clots in your legs. After 6 weeks resume taking 81mg daily. Take Cephalexin (antibiotic) 3x/day for 10 days to help prevent skin infection. Take Celebrex 200mg daily for 30 days to reduce swelling and inflammation. Take a multivitamin, stool softener and extra Vitamin C supplement daily. For pain: *Mild pain (1-3/10): Take 1 Tramadol tablet every 4 hours as needed. Moderate pain (4-6/10): Take 1 Tramadol tablet and 1 Percocet tablet every 4 hours as needed. Severe pain (7-10/10): Take 1 Tramadol tablet and 2 Percocet tablets every 4 hours as needed. Activity: You can put as much weight on the operative leg as you want. For the first 6 weeks, all you need to do is walk around the house, go up/down stairs, and sit down/get up. After 6 weeks when everything is healed (and bone has grown into the implant) you will be sent for more intensive outpatient physical therapy. Always use a walker or cane for balance and to prevent falls. Expect to see swelling / bruising from the operative site all the way down to your toes. Wear the Compression stocking on the operative side during the day to minimize how much swelling there is in your foot/ankle. Don't wear the stocking at night. You don 't have to wear the stocking on the other side. Disposition: [facility]/HOME HEALTH CARE - Home Medications Comprehensive Discharge Medication List: Ambulatory Orders Duloxetine HCl [Cymbalta] 60 mg PO DAILY 02/27/17 Gabapentin 300 mg PO HS 02/27/17 Irbesartan [Avapro] 300 mg PO DAILY 02/27/17 Lansoprazole [Prevacid] 30 mg PO DAILY 02/27/17 Levothyroxine [Synthroid -] 25 mcg PO DAILY 02/27/17 Liothyronine Sodium [Cytomel] 2 tab PO DAILY 02/27/17 Salmeterol/Fluticasone [Advair 500Mcg/50Mcg -] 2 inh IH DAILY 02/27/17 Orphenadrine Citrate 100 mg PO BID PRN #30 tablet.er MDD 2 03/02/17 Ascorbic Acid [Vitamin C -] 500 mg PO BID tablet 11/27/17 Aspirin [ASA -] 325 mg PO DAILY@0800 tablet 11/27/17 Celecoxib [CeleBREX -] 200 mg PO DAILY #30 capsule 11/27/17 Celecoxib [CeleBREX -] 200 mg PO DAILY #30 capsule 11/27/17 Cephalexin Monohydrate [Keflex -] 500 mg PO TID #30 capsule 11/27/17 Cephalexin Monohydrate [Keflex -] 500 mg PO TID #30 capsule 11/27/17 Multivitamins [Multivit ([facility] Formulary)] 1 tab PO DAILY tab 11/27/17 Oxycodone HCl/Acetaminophen [Percocet 5-325 mg Tablet] 1 - 2 tab PO Q4H PRN #60 tablet MDD 10 11/27/17 Sennosides/Docusate Sodium [Pericolace -] 1 tablet PO BID tablet 11/27/17 traMADol HCL [Ultram -] 50 mg PO Q4H PRN #42 tablet MDD 6 11/27/17
[2017-11-28] MEDS: traMADol HCL 50 MG TABLET PO SCH ×2 (03:02→09:09)
[2017-11-28] MEDS: LEVOTHYROXINE NA 25 MCG TABLET (FP) PO SCH (06:13)
[2017-11-28 06:36] VITALS: TEMP 98
[2017-11-28 08:51] LABS: HEMATOCRIT 28.7 % (32.4-45.2); HEMOGLOBIN 8.8 GM/dl (10.7-15.3); MCH 22.8 pg (25.7-33.7); MCHC 30.6 g/dl (32.0-36.0); MEAN CELL VOLUME 74.3 fl (80-96); PLATELET COUNT 395 K/MM3 (134-434); RBC 3.87 M/mm3 (3.60-5.2); RDW 16.6 % (11.6-15.6); WHITE BLOOD COUNT 12.3 K/mm3 (4.0-10.8)
[2017-11-28] MEDS ORDERED: PT OWN MED DRAWER 7, Y5N ONE ×2 (09:01→09:13)
[2017-11-28 09:09] VITALS: BP 106/43; PULSE 57
[2017-11-28] MEDS: ASPIRIN 325 MG TABLET PO SCH (09:09)
[2017-11-28] MEDS: oxyCODONE HCL 10 MG SUSTAINED ACTING TABLET PO SCH (09:10)
[2017-11-28] MEDS: oxyCODONE HCL 5 MG TABLET PO PRN (09:11)
[2017-11-28] MEDS: MULTIVITAMINS (DAILY MVI) TABLET (FP) PO SCH (09:12)
[2017-11-28] MEDS: DULoxetine HCL 30 MG CAPSULE.DR (FP) PO SCH (09:12)
[2017-11-28] MEDS: GABAPENTIN 300 MG CAPSULE (FP) PO SCH (09:12)
[2017-11-28] MEDS: CELECOXIB 200 MG CAPSULE PO SCH (09:12)
[2017-11-28] MEDS: PANTOPRAZOLE 40 MG TABLET (FP) PO SCH (09:12)
[2017-11-28] MEDS: FERROUS SO4 325 MG TABLET (FP) PO SCH (09:12)
[2017-11-28] MEDS: ASCORBIC ACID 500 MG TABLET (FP) PO SCH (09:12)
[2017-11-28] MEDS: BUDESONIDE/FORMETEROL FUMARATE 160/4.5 mcg INHALER IH SCH (09:13)
[2017-11-28] MEDS: LOSARTAN POTASSIUM 50 MG TABLET (FP) PO SCH (09:13)
[2017-11-28] MEDS: SENNOSIDES/DOCUSATE COMBO (SENNA PLUS) TABLET (UD) PO SCH (09:13)
[2017-11-28] MEDS: LIOTHYRONINE SODIUM 5 MCG TABLET PO SCH (09:13)
--- NOTE | 2017-11-28 14:10 | PATH ---
Surgical Pathology Report Patient Name: CHIQUI MARTIN Med. Rec. #: [id number] /Age/Gender: 1955 (Age: 62) / F Account: [id number] Location: [facility] Taken: 11/26/2017 Received: 11/26/2017 Reported: 11/28/2017 Physicians: Kishan Salazar M.D. Specimen(s) Received HEAD OF RIGHT FEMUR Clinical History Right hip osteoarthritis Final Diagnosis HEAD OF FEMUR, RIGHT, TOTAL HIP REPLACEMENT: DEGENERATIVE JOINT DISEASE. Electronically Signed Lexus Burgess M.D. Gross Description Received in formalin, labeled "head of right femur," is a 4.4 x 4.4 x 4.0 cm. femoral head with a 0.9 cm length portion of femoral neck attached. The margin of resection is smooth. There is a 1.9 cm greatest dimension area of eburnation present. The remaining articular surface is dale-yellow and diffusely granular and nodular. The underlying trabecular bone is yellow and hard. A development representative section is submitted in one cassette, following decalcification. /11/27/2017 [facility]11/27/2017
== END 2017-11-28 13:20 | disposition home health service (06) | DRG 470 ==
LOC: FM/S 08:13
PROVIDERS: ADMIT Student in an Organized Health Care Education/Training Program; ATTEND Student in an Organized Health Care Education/Training Program
PROC: 8E0W0CZ Robotic Assisted Procedure of Trunk Region, Open Approach (ICD-10-PCS; 2017-11-26)
PROC: 0SR903A Replacement of Right Hip Joint with Ceramic Synthetic Substitute, Uncemented, Open Approach (ICD-10-PCS; principal; 2017-11-26 11:42)
DX: M16.11 Unilateral primary osteoarthritis, right hip (principal); I10 Essential (primary) hypertension; K21.9 Gastro-esophageal reflux disease without esophagitis; E03.9 Hypothyroidism, unspecified
CPT/HCPCS: 36415; 73523-TC-FY; 80048; 85027; 88304-TC; 88311-TC; 94760; 97116-GP; 97162-GP; J0131; J1100